=== PATIENT | female | born 1965 | race Caucasian/White ===

== ENCOUNTER → 2023-06-17 06:16 | Day surgery (SDC) | payer OTHER, SELFPAY | LOC: GI 06:16 | PROVIDERS: ATTENDING PHYSICIAN Surgery; FAMILY PHYSICIAN Nurse Practitioner Adult Health | DX: Z12.11 Encounter for screening for malignant neoplasm of colon (principal); K63.5 Polyp of colon | CPT/HCPCS: 45380; 88305 ==

== ENCOUNTER → 2024-02-23 09:09 | Outpatient (REF) | payer OTHER, SELFPAY | LOC: HWWDC 09:09 | PROVIDERS: ATTENDING PHYSICIAN Nurse Practitioner Adult Health; FAMILY PHYSICIAN Physician Assistant Medical | DX: Z12.31 Encounter for screening mammogram for malignant neoplasm of breast (principal); M54.2 Cervicalgia | CPT/HCPCS: 72052; 77063; 77067 ==

== ENCOUNTER 2024-03-17 09:56 | Outpatient (RCR) | payer OTHER, SELFPAY | END 2024-03-17 23:59 | disposition home or self-care (01) | LOC: RPT 09:56 | PROVIDERS: ATTENDING PHYSICIAN Physician Assistant Medical | DX: M54.2 Cervicalgia (principal); Z73.6 Limitation of activities due to disability | CPT/HCPCS: 97110; 97162 ==

== ENCOUNTER 2024-04-02 09:55 | Outpatient (RCR) | payer OTHER, SELFPAY | END 2024-04-02 23:59 | disposition home or self-care (01) | LOC: RPT 09:55 | PROVIDERS: ATTENDING PHYSICIAN Physician Assistant Medical | DX: M54.2 Cervicalgia (principal); Z73.6 Limitation of activities due to disability | CPT/HCPCS: 97110 ==

== ENCOUNTER → 2024-06-22 15:49 | Outpatient (REF) | payer OTHER, SELFPAY | LOC: HWRCS 15:49 | PROVIDERS: ATTENDING PHYSICIAN Nuclear Medicine Nuclear Cardiology; FAMILY PHYSICIAN Physician Assistant Medical | DX: R00.2 Palpitations (principal); R07.2 Precordial pain; R06.02 Shortness of breath; R53.83 Other fatigue | CPT/HCPCS: 93306 ==

== ENCOUNTER → 2024-06-29 09:38 | Outpatient (REF) | payer OTHER, SELFPAY | LOC: RCS 09:38 | PROVIDERS: ATTENDING PHYSICIAN Nuclear Medicine Nuclear Cardiology; FAMILY PHYSICIAN Physician Assistant Medical | DX: R00.2 Palpitations (principal); R07.2 Precordial pain; R06.02 Shortness of breath; R53.83 Other fatigue | CPT/HCPCS: 93017; 93350 ==

== ENCOUNTER → 2025-03-03 12:52 | Outpatient (REF) | payer OTHER, SELFPAY | LOC: HWWDC 12:52 | PROVIDERS: ATTENDING PHYSICIAN Nurse Practitioner Adult Health; FAMILY PHYSICIAN Physician Assistant Medical | DX: Z78.0 Asymptomatic menopausal state (principal); Z12.31 Encounter for screening mammogram for malignant neoplasm of breast | CPT/HCPCS: 77063; 77067; 77080 ==

== ENCOUNTER → 2025-04-04 15:04 | Outpatient (REF) | payer OTHER, SELFPAY | LOC: RAD 15:04 | PROVIDERS: ATTENDING PHYSICIAN Physician Assistant Medical | DX: R42 Dizziness and giddiness (principal) | CPT/HCPCS: 93880 ==

== ENCOUNTER → 2025-04-09 08:45 | Outpatient (REF) | payer OTHER, SELFPAY | LOC: PAVMRI 08:45 | PROVIDERS: ATTENDING PHYSICIAN Physician Assistant Medical | DX: R42 Dizziness and giddiness (principal); M54.2 Cervicalgia | CPT/HCPCS: 72141 ==